=== PATIENT | male | born 1975 | race African-American/Black ===

== ENCOUNTER 2016-07-17 14:49 | Emergency (ER) | payer MEDICAID ==
--- NOTE | 2016-07-17 14:55 | ER Document Report ---
ED Medical Screen (RME) - General Stated Complaint: LEFT FOOT SWELLING Mode of Arrival: Ambulatory Information source: Patient Notes: Patient presents to the emergency department with complaints of left foot pain and swelling for couple months. 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 He denies trauma. He denies diabetes. I have greeted and performed a rapid initial assessment of this patient. A comprehensive ED assessment and evaluation of the patient, analysis of test results and completion of the medical decision making process will be conducted by additional ED providers. TRAVEL OUTSIDE OF THE [place] 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 Denies: Hx Cerebrovascular Accident Musculoskeltal Medical History: Denies Hx Arthritis Past Surgical History: Reports: Hx Appendectomy - Immunizations Immunizations up to date: Yes Hx Diphtheria, Pertussis, Tetanus Vaccination: Yes - unk
--- NOTE | 2016-07-17 16:44 | ER Document Report ---
ED Extremity Problem, Lower - General Chief Complaint: Foot Pain Stated Complaint: LEFT FOOT SWELLING Mode of Arrival: Ambulatory Notes: Patient is here for pain in his left fifth toe and the adjacent distal lateral left foot for about 2 months. It started as pain in the toe and now also feels like a "crack" between the fifth and fourth toes. The left fifth toe has turned pink and reddish over the past couple of days. Patient recalls no injury at any time to that toe. No fevers. No history of diabetes. No history of gout or other arthritides. TRAVEL OUTSIDE OF THE [place] IN LAST 30 DAYS: No - Related Data Allergies/Adverse Reactions: No Known Allergies Allergy (Verified 07/17/16 14:52) Past Medical History - General Information source: Patient - Social History Smoking Status: Current Every Day Smoker Cigarette use (# per day): Yes Chew tobacco use (# tins/day): No Frequency of alcohol use: None Drug Abuse: Marijuana Family History: Reviewed & Not Pertinent Patient has suicidal ideation: No Patient has homicidal ideation: No - Past Medical History Cardiac Medical History: Reports: None, Hx Atrial Fibrillation, Hx Congestive Heart Failure, Hx DVT, Hx Hypercholesterolemia, Hx Peripheral Vascular Disease, Hx Pulmonary Embolism, Hx Heart Murmur, Other Pulmonary Medical History: Reports: Hx Asthma Neurological Medical History: Reports: Hx Seizures - Pediatric x1, 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 Past Surgical History: Reports: Hx Appendectomy - Immunizations Immunizations up to date: Yes Hx Diphtheria, Pertussis, Tetanus Vaccination: Yes - unk Review of Systems - Review of Systems Notes: REVIEW OF SYSTEMS: CONSTITUTIONAL : Denies fever. EENT: Denies eye, ear, nose or mouth or throat pain or other symptoms. CARDIOVASCULAR: Denies chest pain. RESPIRATORY: Denies cough, chest congestion, or shortness of breath. GASTROINTESTINAL: Denies abdominal pain or nausea, vomiting, or diarrhea. GENITOURINARY: Denies difficulty or painful urinating, urinary frequency, blood in urine. MUSCULOSKELETAL: Denies back or neck pain. See history of present illness. SKIN: Denies rash or skin lesions. NEUROLOGICAL: Denies LOC or altered mental status. Denies headache. Denies sensory loss or motor deficits. PSYCHIATRIC: Denies anxiety or stress. Denies depression. ALL OTHER SYSTEMS REVIEWED AND NEGATIVE. Physical Exam - Vital signs Vitals: Temp Pulse Resp BP Pulse Ox 97.5 F 79 16 129/74 H 97 07/17/16 14:53 07/17/16 14:53 07/17/16 14:53 07/17/16 14:53 07/17/16 14:53 Interpretation: Normal - Notes Notes: PHYSICAL EXAMINATION: GENERAL: Well-appearing, in no acute distress. Vital signs normal. Afebrile. HEAD: Atraumatic, normocephalic. NECK: Normal range of motion, supple. LUNGS: Breath sounds clear and equal bilaterally. HEART: Regular rate and rhythm without murmurs. ABDOMEN: Soft, nontender. No guarding or rebound. EXTREMITIES: Patient's left fifth toe is erythematous with some swelling. it' s warm and painful to the touch or move the toe. I spread the area between the fourth and fifth toe open and do not see any cracks or breaks in the skin. Patient complains of pain where I'm touching, but I don't see any abnormality except there is some white appearance to the inner aspect of the fifth toe. This might be a fungal infection. Otherwise, all joints are with normal range of motion without pain. SKIN: Warm, dry, no rashes. Course - Re-evaluation Re-evalutation: 07/17/16 20:37 Accu-Chek 83. X-ray of the patient's foot toe is normal. - Vital Signs Vital signs: Temp Pulse Resp BP Pulse Ox 97.5 F 58 L 18 107/80 98 07/17/16 17:53 07/17/16 17:53 07/17/16 17:53 07/17/16 17:53 07/17/16 17:53 Discharge - Discharge Clinical Impression: Cellulitis of fifth toe of left foot Condition: Stable Disposition: HOME, SELF-CARE Additional Instructions: CELLULITIS: You have an infection of your skin and underlying soft tissues called cellulitis. This is due to bacteria, which can enter through any break in the skin, or even through an irritated hair follicle. Untreated, cellulitis will usually worsen. Antibiotics are required. Usually, warm packs or warm soaks, and elevation of the infected area are recommended. You should start getting better within 24 to 36 hours. Most infections respond quickly to the right medication. Follow-up care is important, however, to check for abscess (boil) formation, unsuspected foreign body, or resistant infection. If you develop fever, chills, or if the area of infection is becoming rapidly more swollen or painful, call the doctor at once. ANTIBIOTIC THERAPY: You have been given an antibiotic prescription. It's important that you take all the medication, unless instructed otherwise by your physician. Failure to complete the entire course can result in relapse of your condition. Common side effects of antibiotics include nausea, intestinal cramping, or diarrhea. Women may develop vaginal yeast infections, and babies can get yeast (thrush) in the mouth following the use of antibiotics. Contact your physician if you develop significant side effects from this medication. Allergy to this antibiotic can result in hives, wheezing, faintness, or itching. If symptoms of allergy occur, stop the medication and call the doctor. Cephalexin The antibiotic you've been prescribed is a member of the cephalosporin class. This type of antibiotic covers a wide variety of infections, including those of the skin, lungs, and urinary tract. It's useful for staph infections. This antibiotic is slightly similar to the penicillin family. In rare cases , a person who is allergic to penicillin will also be allergic to this medication. If you have had a severe allergic reaction to penicillin, and have not taken this antibiotic since that time, notify your doctor. Antibiotics which cover many germs ("broad spectrum" antibiotics) are more likely to cause diarrhea or "yeast" infections. Women prone to vaginal yeast problems may suffer an attack after taking this antibiotic. In infants, oral thrush (white spots "stuck" on the cheek) or yeast diaper rash may result. See your doctor if these problems occur. Call at once if you develop itching, hives , shortness of breath, or lightheadedness. ORAL NARCOTIC MEDICATION: You have been given a prescription for pain control. This medication is a narcotic. It's best taken with food, as nausea can result if taken on an empty stomach. Don't operate machinery or drive within six hours of taking this medication. Do not combine this medicine with alcohol, or with any medication which can cause sedation (such as cold tablets or sleeping pills) unless you get permission from the physician. Narcotics tend to cause constipation. If possible, drink plenty of fluids and eat a diet high in fiber and fruits. Please be aware that prescription narcotics also have the potential for abuse. People become addicted to these medications because of the general sense of wellbeing that they induce. This feeling along with a significant reduction in tension, anxiety, and aggression provides a stimulating seductive quality to these drugs. Once your pain is under control, we encourage you to discard your unused narcotics. Nystatin Nystatin is used to treat yeast or fungus infection. It's very effective against Lois, the fungus that causes typical "yeast infections." (Nystatin does not kill bacteria or viruses.) To kill yeast, nystatin must be put directly in contact with the infected area. Nystatin does not get into the blood stream -- for example, you can't take it by mouth to cure a vaginal yeast infection. The most common use for nystatin is yeast infection of the mouth or skin. It's applied directly to the infected area. Sometimes nystatin is given by mouth to eliminate yeast from the intestines. Keep using nystatin until 2 days after all the symptoms are gone, or longer if the doctor wishes. Nystatin is very free of side effects. Contact the doctor if you develop vomiting, abdominal pain, or rash. Gently clean in between the toes to her 3 times a day with warm water and a mild soap like Ivory or Dove. Try to dry it out well after finishing cleansing the area. Apply the nystatin cream between those toes at least a couple of times a day. Elevate the foot as much as possible. FOLLOW-UP CARE: If you have been referred to a physician for follow-up care, call the physician s office for an appointment as you were instructed or within the next two days. If you experience worsening or a significant change in your symptoms, notify the physician immediately or return to the Emergency Department at any time for re-evaluation. Prescriptions: Cephalexin [Cephalexin 500 MG Capsule] 1 cap PO QID #28 capsule Nystatin 15 gm TP BID #1 cream..g. Oxycodone HCl/Acetaminophen [Percocet 5-325 mg Tablet] 1 - 2 tab PO Q4H PRN #25 tablet PRN Reason: Forms: Return to Work Referrals: NOAH YORK MD [Primary Care Provider] - Follow up as needed
[2016-07-17 17:54] VITALS: BP 107/80
== END 2016-07-17 17:54 | disposition home or self-care (01) ==
LOC: ER 14:49
DX: L03.032 Cellulitis of left toe (principal); F17.210 Nicotine dependence, cigarettes, uncomplicated; J45.909 Unspecified asthma, uncomplicated
CPT/HCPCS: 82962; 99283

== ENCOUNTER 2016-08-25 11:42 | Emergency (ER) | payer MEDICAID ==
--- NOTE | 2016-08-25 12:01 | ER Document Report ---
ED Medical Screen (RME) - General Stated Complaint: FEVER,CHILLS,COUGH,CONGESTION Time seen by provider: 12:00 Mode of Arrival: Ambulatory Information source: Patient Notes: 41-year-old male presents to ED for flulike symptoms body aches chills fever for about 2 weeks. Denies any nausea or vomiting. 3:00 this morning he was 101.6 and he received 30 mL of liquid Tylenol I have greeted and performed a rapid initial assessment of this patient. A comprehensive ED assessment and evaluation of the patient, analysis of test results and completion of medical decision making process will be conducted by an additional ED providers. TRAVEL OUTSIDE OF THE [place] 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 Denies: Hx Cerebrovascular Accident Renal/ Medical History: Denies: Hx Peritoneal Dialysis Musculoskeltal Medical History: Denies Hx Arthritis Past Surgical History: Reports: Hx Appendectomy - Immunizations Immunizations up to date: Yes Hx Diphtheria, Pertussis, Tetanus Vaccination: Yes - unk Physical Exam - Vital signs Vitals: Temp Pulse Resp BP Pulse Ox 98.0 F 65 20 118/66 99 08/25/16 11:55 08/25/16 11:55 08/25/16 11:55 08/25/16 11:55 08/25/16 11:55 Course - Vital Signs Vital signs: Temp Pulse Resp BP Pulse Ox 98.0 F 65 20 118/66 99 08/25/16 11:55 08/25/16 11:55 08/25/16 11:55 08/25/16 11:55 08/25/16 11:55
[2016-08-25 13:24] VITALS: BP 105/60
[2016-08-25] MEDS ORDERED: ALBUTEROL SULFATE HFA (90 MCG/PUFF) 8 GM MDI (1 MDI/ER DISP) IH ONE (13:46)
--- NOTE | 2016-08-25 13:48 | ER Document Report ---
ED General - General Chief Complaint: Flu Symptoms Stated Complaint: FEVER,CHILLS,COUGH,CONGESTION Mode of Arrival: Ambulatory TRAVEL OUTSIDE OF THE [place] IN LAST 30 DAYS: No - HPI Patient complains to provider of: fevers chills cough congestion Notes: 2 weeks of symptoms fevers chills cough congestion patient states he did have a brief. A few days wears feeling better. Denies nausea vomiting states he is having diarrhea at this time. - Related Data Allergies/Adverse Reactions: No Known Allergies Allergy (Verified 08/25/16 12:02) Past Medical History - General Information source: Patient - Social History Smoking Status: Current Every Day Smoker Chew tobacco use (# tins/day): No Frequency of alcohol use: Social Drug Abuse: Marijuana Family History: Reviewed & Not Pertinent Patient has suicidal ideation: No Patient has homicidal ideation: No - Past Medical History Cardiac Medical History: Reports: Hx Atrial Fibrillation, Hx Congestive Heart Failure, Hx DVT, Hx Hypercholesterolemia, Hx Peripheral Vascular Disease, Hx Pulmonary Embolism, Hx Heart Murmur Denies: Hx Coronary Artery Disease, Hx Heart Attack, Hx Hypertension Pulmonary Medical History: Reports: Hx Asthma Denies: Hx Bronchitis, Hx COPD, Hx Pneumonia Neurological Medical History: Reports: Hx Seizures - Pediatric x1, 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 Denies: Hx Cerebrovascular Accident Renal/ Medical History: Denies: Hx Peritoneal Dialysis Musculoskeltal Medical History: Denies Hx Arthritis Past Surgical History: Reports: Hx Appendectomy - Immunizations Immunizations up to date: Yes Hx Diphtheria, Pertussis, Tetanus Vaccination: Yes - unk Review of Systems - Review of Systems Constitutional: No symptoms reported EENT: No symptoms reported Cardiovascular: No symptoms reported Respiratory: No symptoms reported Gastrointestinal: No symptoms reported Genitourinary: No symptoms reported Male Genitourinary: No symptoms reported Musculoskeletal: No symptoms reported Skin: No symptoms reported Hematologic/Lymphatic: No symptoms reported Neurological/Psychological: No symptoms reported -: Yes All other systems reviewed and negative Physical Exam - Vital signs Vitals: Temp Pulse Resp BP Pulse Ox 98.0 F 65 20 118/66 99 08/25/16 11:55 08/25/16 11:55 08/25/16 11:55 08/25/16 11:55 08/25/16 11:55 Interpretation: Normal - General General appearance: Appears well, Alert - HEENT Head: Normocephalic, Atraumatic Eyes: Normal Pupils: PERRL - Respiratory Respiratory status: No respiratory distress Chest status: Nontender Breath sounds: Wheezing Chest palpation: Normal - Cardiovascular Rhythm: Regular Heart sounds: Normal auscultation Murmur: No - Abdominal Inspection: Normal Distension: No distension Bowel sounds: Normal Tenderness: Nontender Organomegaly: No organomegaly - Back Back: Normal, Nontender - Extremities General upper extremity: Normal inspection, Nontender, Normal color, Normal ROM , Normal temperature General lower extremity: Normal inspection, Nontender, Normal color, Normal ROM , Normal temperature, Normal weight bearing. No: Latonya's sign - Neurological Neuro grossly intact: Yes Cognition: Normal Orientation: AAOx4 Jennifer Coma Scale Eye Opening: Spontaneous Jennifer Coma Scale Verbal: Oriented Jennifer Coma Scale Motor: Obeys Commands Drury Coma Scale Total: 15 Speech: Normal Motor strength normal: LUE, RUE, LLE, RLE Sensory: Normal - Psychological Associated symptoms: Normal affect, Normal mood - Skin Skin Temperature: Warm Skin Moisture: Dry Skin Color: Normal Course - Re-evaluation Re-evalutation: 08/25/16 15:22 Patient diagnosed with influenza. Patient does have wheezing on examination encouraged to stop smoking. Will give albuterol inhaler Patient will be discharged home - Vital Signs Vital signs: Temp Pulse Resp BP Pulse Ox 98.2 F 65 20 105/60 95 08/25/16 13:12 08/25/16 13:12 08/25/16 13:12 08/25/16 13:12 08/25/16 13:12 Discharge - Discharge Clinical Impression: Influenza A Condition: Good Disposition: HOME, SELF-CARE Instructions: Influenza ([facility]) [id number] Additional Instructions: Please continue to take Tylenol and Motrin for fever control. I will prescribe you Phenergan to aid in any nausea that she may have. He can expect to have fevers and chills for the next 5 days. Expected feel weak and tired for 2 weeks it will take her body some time to recover from having the flu. Please use the inhaler that we gave you here in ER 2 puffs every 4 hours for the next 5 days to have probably shortness of breath. You must stop smoking cigarettes and marijuana to aid in recovery of getting over the flu Please drink plenty water to stay hydrated Prescriptions: Promethazine HCl [Phenergan 25 mg Tablet] 1 - 2 tab PO Q6H PRN #30 tablet PRN Reason: Forms: Smoking Cessation Education, Return to Work Referrals: NOAH YORK MD [Primary Care Provider] - Follow up in 1 week
== END 2016-08-25 14:05 | disposition home or self-care (01) ==
LOC: ER 11:42
DX: J11.1 Influenza due to unidentified influenza virus with other respiratory manifestations (principal); R50.9 Fever, unspecified; R05 Cough; R19.7 Diarrhea, unspecified; J45.909 Unspecified asthma, uncomplicated; F17.200 Nicotine dependence, unspecified, uncomplicated
CPT/HCPCS: 99283; 87804; 71020; J3490

== ENCOUNTER 2016-11-12 15:41 | Emergency (ER) | payer MEDICAID ==
[2016-11-12 15:58] VITALS: BP 119/77
[2016-11-12] MEDS ORDERED: BUPIVACAINE HCL 0.5 % INJ/PF 30 ML SDV INJ ONE (17:10)
--- NOTE | 2016-11-12 18:02 | ER Document Report ---
HPI - HPI Patient complains to provider of: dental pain Pain Level: 4 Context: Patient is a 41-year-old male presents emergency Department complaining of right upper jaw pain. Patient states that he was started on antibiotics and followed up with his dentist yesterday who pulled his tooth #2. Denies any fevers, chills, difficulty swallowing. He states difficulty talking discuss it hurts to move his jaw. Otherwise been taking Tylenol with Codeine at home with minimal relief in his symptoms. He medications from his dentist. He has been taking penicillin for antibiotic. - DERM Skin Color: Normal Past Medical History - Social History Smoking Status: Current Every Day Smoker Family History: Reviewed & Not Pertinent Patient has suicidal ideation: No Patient has homicidal ideation: No - Past Medical History Cardiac Medical History: Reports: Hx Atrial Fibrillation, Hx Congestive Heart Failure, Hx DVT, Hx Hypercholesterolemia, Hx Peripheral Vascular Disease, Hx Pulmonary Embolism, Hx Heart Murmur Denies: Hx Coronary Artery Disease, Hx Heart Attack, Hx Hypertension Pulmonary Medical History: Reports: Hx Asthma Denies: Hx Bronchitis, Hx COPD, Hx Pneumonia Neurological Medical History: Reports: Hx Seizures - Pediatric x1, 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 Denies: Hx Cerebrovascular Accident Renal/ Medical History: Denies: Hx Peritoneal Dialysis Musculoskeltal Medical History: Denies Hx Arthritis Past Surgical History: Reports: Hx Appendectomy - Immunizations Immunizations up to date: Yes Hx Diphtheria, Pertussis, Tetanus Vaccination: Yes - unk Vertical Provider Document - CONSTITUTIONAL Agree With Documented VS: Yes Exam Limitations: No Limitations General Appearance: WD/WN, No Apparent Distress - INFECTION CONTROL TRAVEL OUTSIDE OF THE [place] IN LAST 30 DAYS: No - HEENT HEENT: Atraumatic, Normocephalic Mouth Diagram: 1 - Socket healing well. No evidence of pus retained within the socket. Tenderness to palpation. Notes: Uvula midline. Airway patent. No evidence of tonsillar enlargement, peritonsillar abscess, retropharyngeal abscess. - NECK Neck: Normal Inspection. negative: Lymphadenopathy-Left, Lymphadenopathy-Right Notes: No evidence of Wolfgang angina - RESPIRATORY Respiratory: Breath Sounds Normal, No Respiratory Distress, Chest Non-Tender O2 Sat by Pulse Oximetry: 96 - CARDIOVASCULAR Cardiovascular: Regular Rate, Regular Rhythm, No Murmur - NEURO Level of Consciousness: Awake, Alert, Appropriate Course - Re-evaluation Re-evalutation: 11/12/16 19:25 Patient received a 5 mL Sensorcaine block with resolution of symptoms. Sent him home with pain medication and instructed her dentist - Vital Signs Vital signs: Temp Pulse Resp BP Pulse Ox 98.3 F 59 L 16 119/77 96 11/12/16 15:57 11/12/16 15:57 11/12/16 15:57 11/12/16 15:57 11/12/16 15:57 Discharge - Discharge Clinical Impression: Pain, dental Condition: Good Disposition: HOME, SELF-CARE Instructions: Toothache ([facility]) Additional Instructions: Be sure to take Tylenol and Motrin every 3-5 hours Only take the Tramadol for breakthrough pain Prescriptions: Tramadol HCl 50 mg PO Q6HP PRN #15 tablet PRN Reason: Forms: Return to Work
== END 2016-11-12 18:20 | disposition home or self-care (01) ==
LOC: ER 15:41
PROC: 3E0T3BZ Introduction of Anesthetic Agent into Peripheral Nerves and Plexi, Percutaneous Approach (ICD-10-PCS; principal; 2016-11-12)
DX: K08.89 Other specified disorders of teeth and supporting structures (principal); R68.84 Jaw pain; F17.200 Nicotine dependence, unspecified, uncomplicated
CPT/HCPCS: 99282

== ENCOUNTER 2017-05-25 13:59 | Emergency (ER) | payer SELFPAY ==
[2017-05-25 14:14] VITALS: BP 121/70
--- NOTE | 2017-05-25 15:07 | ER Document Report ---
HPI - HPI Patient complains to provider of: right eye redness Pain Level: 5 Context: 41 yo male c/o right eye redness and crusting x 4 days. no eye pain. + blurred vision. noncontact wearer. no eye trauma Associated Symptoms: None Exacerbated by: Denies Relieved by: Denies Similar symptoms previously: No Recently seen / treated by doctor: No - ROS Systems Reviewed and Negative: Yes All other systems reviewed and negative - EENT EENT: REPORTS: Eye problems Past Medical History - General Information source: Patient - Social History Smoking Status: Current Every Day Smoker Chew tobacco use (# tins/day): No Frequency of alcohol use: Occasional Drug Abuse: Marijuana Family History: Reviewed & Not Pertinent Patient has suicidal ideation: No Patient has homicidal ideation: No - Past Medical History Cardiac Medical History: Reports: Hx Atrial Fibrillation, Hx Congestive Heart Failure, Hx DVT, Hx Hypercholesterolemia, Hx Peripheral Vascular Disease, Hx Pulmonary Embolism, Hx Heart Murmur Denies: Hx Coronary Artery Disease, Hx Heart Attack, Hx Hypertension Pulmonary Medical History: Reports: Hx Asthma Denies: Hx Bronchitis, Hx COPD, Hx Pneumonia Neurological Medical History: Reports: Hx Seizures - Pediatric x1, 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 Denies: Hx Cerebrovascular Accident Renal/ Medical History: Denies: Hx Peritoneal Dialysis Musculoskeltal Medical History: Denies Hx Arthritis Past Surgical History: Reports: Hx Appendectomy, Hx Orthopedic Surgery - left shoulder - Immunizations Immunizations up to date: Yes Hx Diphtheria, Pertussis, Tetanus Vaccination: Yes - unk Vertical Provider Document - CONSTITUTIONAL Agree With Documented VS: Yes Exam Limitations: No Limitations General Appearance: WD/WN - INFECTION CONTROL TRAVEL OUTSIDE OF THE [place] IN LAST 30 DAYS: No - HEENT HEENT: PERRLA - right conjunctival injection. no flourescein uptake - NECK Neck: Normal Inspection, Supple - RESPIRATORY Respiratory: Breath Sounds Normal O2 Sat by Pulse Oximetry: 98 - CARDIOVASCULAR Cardiovascular: Regular Rate, Regular Rhythm - NEURO Level of Consciousness: Awake, Alert - DERM Integumentary: Warm, Dry, No Rash Course - Vital Signs Vital signs: Temp Pulse Resp BP Pulse Ox 97.6 F 54 L 16 121/70 98 05/25/17 14:11 05/25/17 14:11 05/25/17 14:11 05/25/17 14:11 05/25/17 14:11 Discharge - Discharge Clinical Impression: Conjunctivitis, acute, right eye Qualifiers: Acute conjunctivitis type: unspecified Qualified Code(s): H10.31 - Unspecified acute conjunctivitis, right eye Condition: Stable Instructions: Conjunctivitis ([facility]), Eyedrop Use ([facility]) Additional Instructions: use antibiotic drops as prescribed good hand hygiene clorox wipes to common surfaces f/u pcm or opthomology if symptoms persist or worsen Prescriptions: Polymyxin B Sulf/Trimethoprim [Polytrim Eye Drops] 1 drop OS Q4 #1 bottle Forms: Return to Work
== END 2017-05-25 15:14 | disposition home or self-care (01) ==
LOC: ER 13:59
DX: H10.31 Unspecified acute conjunctivitis, right eye (principal); H57.11 Ocular pain, right eye; H53.8 Other visual disturbances; F17.200 Nicotine dependence, unspecified, uncomplicated
CPT/HCPCS: 99283

== ENCOUNTER 2018-01-29 16:20 | Emergency (ER) | payer MEDICAID ==
[2018-01-29 16:31] VITALS: BP 120/83
--- NOTE | 2018-01-29 16:55 | ER Document Report ---
HPI - HPI Patient complains to provider of: Right shoulder pain Onset: Other - 2 days Pain Level: 5 Context: 42-year-old male complaining of right trapezius, shoulder, scapular and neck pain for 2 days. Worse with movement. No known injury. No previous history of this. No fever or chills. No chest pain or shortness of breath. no cough. Associated Symptoms: None Exacerbated by: Movement - Bending forward and especially raising his right arm Relieved by: Remaining still - ROS ROS below otherwise negative: Yes Systems Reviewed and Negative: Yes All other systems reviewed and negative Past Medical History - General Information source: Patient - Social History Smoking Status: Current Every Day Smoker Frequency of alcohol use: None Drug Abuse: Marijuana Lives with: Spouse/Significant other Family History: Reviewed & Not Pertinent Pulmonary Medical History: Reports: Hx Asthma Past Surgical History: Reports: Hx Appendectomy, Hx Orthopedic Surgery - left shoulder - Immunizations Immunizations up to date: Yes Hx Diphtheria, Pertussis, Tetanus Vaccination: Yes - unk Vertical Provider Document - CONSTITUTIONAL Agree With Documented VS: Yes Exam Limitations: No Limitations - INFECTION CONTROL TRAVEL OUTSIDE OF THE [place] IN LAST 30 DAYS: No - NECK Neck: Supple Notes: Tender right trapezius right periscapular and the trapezius into the occipital insertion, nontender spine - RESPIRATORY Respiratory: Breath Sounds Normal, No Respiratory Distress - CARDIOVASCULAR Cardiovascular: Regular Rate, Regular Rhythm - MUSCULOSKELETAL/EXTREMETIES Musculoskeletal/Extremeties: Tender - See above - NEURO Level of Consciousness: Alert Motor/Sensory: No Motor Deficit, No Sensory Deficit - DERM Integumentary: No Rash Course - Re-evaluation Re-evalutation: 01/29/18 17:38 X-rays negative per radiologist Patient feels better after medication and sling I will refer to orthopedics 01/29/18 17:39 - Vital Signs Vital signs: Temp Pulse Resp BP Pulse Ox 98.5 F 70 18 120/83 98 01/29/18 16:29 01/29/18 16:29 01/29/18 16:29 01/29/18 16:29 01/29/18 16:29 Procedures - Immobilization Right Arm Time completed: 17:47 Pre-Proc Neuro Vasc Exam: Normal Immobilizer type: Sling Performed by: PCT Post-Proc Neuro Vasc Exam: Normal Alignment checked and good: Yes Discharge - Discharge Clinical Impression: Periscapular muscle tenderness, Trapezius muscle strain Right shoulder strain Qualifiers: Encounter type: initial encounter Qualified Code(s): S46.911A - Strain of unspecified muscle, fascia and tendon at shoulder and upper arm level, right arm , initial encounter Condition: Good Disposition: HOME, SELF-CARE Instructions: Sling as Treatment ([facility]), Ibuprofen (General) ([facility]), Acetaminophen, Warm Packs ([facility]) Additional Instructions: Sling for several days to relax the muscle Tylenol up to 4000 mg a day for pain Motrin 800 mg 3 times a day for pain Warm compress See orthopedics if it persists Prescriptions: Ibuprofen [Motrin 800 mg Tablet] 800 mg PO Q8HP PRN #30 tablet PRN Reason: Referrals: NOAH YORK MD [Primary Care Provider] - Follow up as needed LUIS GALICIA MD [ACTIVE STAFF] - Follow up as needed
[2018-01-29] MEDS ORDERED: OXYCODONE HCL IR 5 MG TABLET PO ONE (16:57)
[2018-01-29] MEDS ORDERED: IBUPROFEN 600 MG TABLET PO ONE (16:57)
[2018-01-29] MEDS ORDERED: ACETAMINOPHEN 325 MG TABLET PO ONE (16:57)
--- NOTE | 2018-01-29 17:33 | RADIOLOGY REPORT (SQ) ---
EXAM DESCRIPTION: SHOULDER RIGHT 2 OR MORE VIEWS COMPLETED DATE/TIME: 01/29/2018 5:13 pm REASON FOR STUDY: pain COMPARISON: None. NUMBER OF VIEWS: Three views. TECHNIQUE: Internal rotation, external rotation, and Y view images acquired of the right shoulder. LIMITATIONS: None. FINDINGS: MINERALIZATION: Normal. BONES: No acute fracture or dislocation. No worrisome bone lesions. JOINTS: No dislocation. VISUALIZED LUNGS AND RIBS: No pneumothorax. No rib fracture. SOFT TISSUES: No radiopaque foreign body. OTHER: No other significant finding. IMPRESSION: NEGATIVE STUDY OF THE RIGHT SHOULDER. NO RADIOGRAPHIC EVIDENCE OF ACUTE INJURY. TECHNICAL DOCUMENTATION: JOB ID: [id number] [employer]- All Rights Reserved Reading location - IP/workstation name: [email or web address]
== END 2018-01-29 17:52 | disposition home or self-care (01) ==
LOC: ER 16:20
DX: M25.511 Pain in right shoulder (principal); S29.012A Strain of muscle and tendon of back wall of thorax, initial encounter; X58.XXXA Exposure to other specified factors, initial encounter; M54.2 Cervicalgia; F17.200 Nicotine dependence, unspecified, uncomplicated
CPT/HCPCS: 99283; 73030; J3490 ×3

== ENCOUNTER → 2018-08-18 | Outpatient (CLI) | payer MEDICAID ==
--- NOTE | 2018-08-18 16:38 | RADIOLOGY REPORT (SQ) ---
EXAM DESCRIPTION: HAND LEFT 3 VIEWS COMPLETED DATE/TIME: 08/18/2018 4:26 pm REASON FOR STUDY: LEFT HAND PAIN; DEFORMITY OF LEFT HAND M79.642 PAIN IN LEFT HAND M21.942 UNSPECI FIED ACQUIRED DEFORMITY OF HAND, LEFT HAND COMPARISON: None. EXAM PARAMETERS: NUMBER OF VIEWS: Three views. TECHNIQUE: AP, lateral and oblique radiographic images acquired of the left hand. LIMITATIONS: None. FINDINGS: MINERALIZATION: Normal. BONES: No acute fracture or dislocation. Deformity at the base of the 4th and 5th metacarpal seconda ry to prior fracture. No worrisome bone lesions. JOINTS: No effusions. SOFT TISSUES: No soft tissue swelling. No foreign body. OTHER: No other significant finding. IMPRESSION: CHRONIC CHANGES RELATED TO OLD FRACTURE OF THE 4TH AND 5TH METACARPAL. NO ACUTE FINDING S. TECHNICAL DOCUMENTATION: JOB ID: [id number] [employer]- All Rights Reserved Reading location - IP/workstation name: [email or web address]
== END ==
LOC: OD 16:12
PROVIDERS: ATTEND Physician Assistant
DX: M79.642 Pain in left hand (principal); M21.942 Unspecified acquired deformity of hand, left hand